=== PATIENT | female | born 1980 | race Caucasian/White ===

== ENCOUNTER 2017-03-03 19:56 | Emergency (ER) | payer MEDICARE | END 2017-03-03 23:25 | disposition short-term general hospital (02) | LOC: ER 19:56 | DX: K80.10 Calculus of gallbladder with chronic cholecystitis without obstruction (principal); F17.210 Nicotine dependence, cigarettes, uncomplicated; Z98.51 Tubal ligation status | CPT/HCPCS: 36415; 96365; 96375; Q9967 ==